=== PATIENT | male | born 1940 | race Caucasian/White ===

== ENCOUNTER 2019-07-19 02:50 | Inpatient (IN) | payer OTHER ==
[~2019-07-19] VITALS: Ht 170.2 cm; Wt 95.2 kg
[2019-07-19] VITALS (7 sets, daily range): BP systolic 119–163; BP diastolic 61–92
[~2019-07-19 02:50] MED LIST: LIPITOR40 MG; LISINOPRIL20 MG PO; LOPRESSOR100 MG; LOW DOSE ASPIRI81 M1; NITROGLYCERIN0.4 MG; PLAVIX 75 MG TA75 MG; PREDNISONE 20 M20 M1 PO; TAZTIA XT PO; TRAMADOL HCL50 MG PO
[2019-07-19] MEDS ORDERED: LASIX 40 MG TAB40 M2 PO (03:29)
[2019-07-19] MEDS ORDERED: ASPIR 8181 MG PO (03:30)
[2019-07-19] MEDS ORDERED: ADVIL200 M3 PO (03:31)
[2019-07-19] MEDS ORDERED: CELEBREX 200 M200 M1 PO (03:32)
[2019-07-19] MEDS ORDERED: CELECOXIB100 MG PO (03:32)
[2019-07-19] MEDS ORDERED: LISINOPRIL20 MG PO (03:33)
[2019-07-19] MEDS ORDERED: KLOR-CON 1010 MEQ PO (03:34)
[2019-07-19] MEDS ORDERED: LOPRESSOR100 M1 PO (03:35)
[2019-07-19] MEDS ORDERED: FLOMAX0.4 MG PO (03:37)
--- NOTE | 2019-07-19 04:28 | NUR ---
ADMITED FROM [facility] AROUND 0320. VSS. PT DENIES CP, SOA, N/V, DIZZINESS. STEADY. RA-CLEAR. ADMISSION MED RECONCIL DONE, PT STATED CAN BRING EXACT LIST IN AM. PATIENT REPRESENTATIVE SAW PT, ORDERS RECIEVED. HEPARIN GTT PER ORDERED PROTOCOL. WILL CONTINUE TO MONITOR AND WITH POC
[2019-07-19 04:56] LABS: HEMATOCRIT 43.6 % (42.0-52.0); HEMOGLOBIN 14.7 gm/dL (14.0-18.0); MCH 31.4 pg (26.0-34.0); MCHC 33.7 g/dL (28.0-37.0); MCV 93.2 fL (80.0-100.0); RBC 4.68 mil/uL (4.50-6.00); RDW 13.5 % (10.5-14.5); WBC 12.1 thou/uL (4.0-11.0)
[2019-07-19 05:09] LABS: APTT 33.4 Seconds (24.5-32.8); PROTIME 10.3 Seconds (9.3-11.4)
[2019-07-19 05:10] LABS: CALCIUM 8.6 mg/dL (8.5-10.1); POTASSIUM 3.7 mmol/L (3.5-5.1)
[2019-07-19 05:15] LABS: ALBUMIN 3.4 g/dL (3.4-5.0); TOTAL BILIRUBIN 0.7 mg/dL (<0.1-1.0); TOTAL PROTEIN 6.3 g/dL (6.4-8.2)
[2019-07-19 13:00] LABS: CHOLESTEROL 161 mg/dL (<200); HDL CHOLESTEROL 31 mg/dL (>40); LDL CHOLESTEROL 111 mg/dL (<100); TC:HDL 5.2 Ratio (Not establshd); TRIGLYCERIDE 98 mg/dL (<150); VLDL 20 mg/dL (<40)
--- NOTE | 2019-07-19 19:45 | NUR ---
PATIENT UP TO THE RESTROOM SEVERAL TIMES AND HEART RATE NOTED TO INCREASE WITH ACTIVITY. MONITOR ST WITH PAC'S AND PVC'S. TROPONIN ELEVATED AND DR YUEN AWARE. PERMITS FOR HEART CATH IN AM SIGNED. NO C/O CHEST PAIN TODAY. HEPARIN INFUSION CONTINUES AND NOW IN [employer] RANGE. REASSURANCE GIVEN.
[2019-07-20] VITALS (15 sets, daily range): BP systolic 95–178; BP diastolic 50–99
--- NOTE | 2019-07-20 03:48 | NUR ---
ASSESSMENT CHARTED. VSS. PT DENIES CP, SOA, N/V, DIZZINESS. HEPARIN GTT PER PROTOCOL LAST APTT THERAPUTIC. NPO. PLAN FOR DIRECTOR LEARNING SERVICES TODAY, PRECATH CHECKLIST. WILL CONTINUE TO MONITOR AND WITH POC.
--- NOTE | 2019-07-20 09:10 | EKG ---
[address] [address] ELECTROCARDIOGRAM REPORT Name: SKYLER YANG Room #: 216-P 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1940 Requested By: Bri Hartman Order Number: [id number] MD: Zeeshan Rogers Measurements Intervals [place] Rate: 97 P: 34 WI: 163 QRS: 38 QRSD: 71 T: -58 QT: 377 QTc: 479 Interpretive Statements Sinus tachycardia Multiform ventricular premature complexes Borderline T abnormalities, diffuse leads Electronically Signed On 07-20-2019 9:10:42 CDT by Zeeshan Rogers [email or web address] ��������������������������������������������� <ELECTRONICALLY SIGNED> ���������������������������������������� By: Zeeshan Rogers MD ��������������������������������������������� 07/20/19909 07 07 MD CHASE Mathew
[2019-07-20 11:27] LABS: TSH 0.82 uIU/mL (0.358-3.740)
--- NOTE | 2019-07-20 12:36 | 2DMMODE ---
[facility] [address] [place] [address] 2 D/M-MODE ECHOCARDIOGRAM Name: SKYLER YANG Room #: 216-P [facility] IN [facility]#: [id number] ������������� Admission: 07/19/19 ������������� Attend Phys: Chrystal Garg MD Discharge: ��� ������������� ��� Date of : 44 Date of Service: 07/20/19 1236 �� Report #: [id number] �������� ��������������������������������������������[id number] THIS REPORT FOR: //name// APPROVED REPORT Study performed: 07/20/2019 11:14:15 EXAM: Comprehensive 2D, Doppler, and color-flow Echocardiogram Patient Location: Bedside Room #: 216 Status: routine BSA: 2.07 HR: 67 bpm BP: 143/72 mmHg Rhythm: NSR Other Information Study Quality: Adequate Technically limited study due to inability to position patient. Risk Factors: Cardiac Risk Factors: HTN, DM Indications Non STEMI CAD 2D Dimensions IVSd: 10.06 (7-11mm) LVOT Diam: 20.00 (18-24mm) LVDd: 47.75 mm PWd: 11.01 (7-11mm) Ascending Ao: 36.67 (22-36mm) LVDs: 35.56 (25-40mm) Aortic Root: 36.69 mm LV Single Plane 4CH: 42.46 % LV Single Plane 2CH: 34.85 % Biplane EF: 40.0 % Volumes Left Atrial Volume (Systole) Single Plane 4CH: 90.86 mL Single Plane 2CH: 90.39 mL LA ESV Index: 51.00 mL/m2 Aortic Valve AoV Peak Daniel.: 1.78 m/s [facility] [address] [place] [address] 2 D/M-MODE ECHOCARDIOGRAM Name: SKYLER YANG Room #: 216-P [facility]#: [id number] ������������� Admission: 07/19/19 ������������� Attend Phys: Chrystal Garg MD Discharge: ��� ������������� ��� Date of : 44 Date of Service: 07/20/19 1236 �� Report #: [id number] �������� ��������������������������������������������[id number] AO Peak Gr.: 12.60 mmHg LVOT Max P.04 mmHg LVOT Mean P.99 mmHg LVOT Max V: 1.05 m/s LVOT Mean V: 0.65 m/s LVOT V1 VTI: 24.46 cm DON Vmax: 1.85 cm2 AI Vmax: 3.61 m/s SV (LVOT): 79.82 mL AI Bucks: 2.11 m/s2 AI PHT: 495.12 ms Mitral Valve E/A Ratio: 0.5 MV Decel. Time: 256.41 ms MV E Max Daniel.: 0.62 m/s MV A Daniel.: 1.18 m/s MV PHT: 74.36 ms IVRT: 72.66 ms TDI E/Lateral E': 15.50 E/Medial E': 20.67 Medial E' Daniel.: 0.03 m/s Lateral E' Daniel.: 0.04 m/s Pulmonary Valve PV Peak Daniel.: 0.76 m/s PV Peak Gr.: 2.34 mmHg Pulmonary Vein P Vein S: 0.33 m/s P Vein A: 0.24 m/s P Vein D: 0.24 m/s P Vein A Dur.: 124.6 msec P Vein S/D Ratio: 1.38 Tricuspid Valve RAP Estimate: 10.00 mmHg Left Ventricle The left ventricle is normal size. There is global hypokinesis of the left ventricle with more prominent lateral hypokinesis There is normal left ventricular wall thickness. Left ventricular systolic function is mild to moderately decreased. LVEF is 40%. Mild diastolic dysfunction is present (impaired relaxation pattern). Right Ventricle The right ventricle is normal size. The right ventricular systolic function is normal. [facility] [address] [place] [address] 2 D/M-MODE ECHOCARDIOGRAM Name: SKYLER YANG Room #: 216-P [facility] IN [facility]#: [id number] ������������� Admission: 07/19/19 ������������� Attend Phys: Chrystal Garg MD Discharge: ��� ������������� ��� Date of : 44 Date of Service: 07/20/19 1236 �� Report #: [id number] �������� ��������������������������������������������[id number] Left atrium is severely dilated. Right atrium is mildly dilated. Aortic Valve The aortic valve is normal in structure. Mild aortic regurgitation. There is no aortic valvular stenosis. Mitral Valve The mitral valve is normal in structure. Mild mitral regurgitation. No evidence of mitral valve stenosis. Tricuspid Valve The tricuspid valve is normal in structure. There is no tricuspid valve regurgitation noted. Pulmonic Valve The pulmonary valve is normal in structure. There is no pulmonic valvular regurgitation. Great Vessels The aortic root is normal in size. The ascending aorta is normal in size. IVC is mildly dilated and collapses >50% with inspiration. Pericardium There is no pericardial effusion. <Conclusion> The left ventricle is normal size. LVEF is 40%. There is global hypokinesis of the left ventricle with more prominent lateral hypokinesis The aortic valve is normal in structure. Mild aortic regurgitation. The mitral valve is normal in structure. Mild mitral regurgitation. The tricuspid valve is normal in structure. The pulmonary valve is normal in structure. There is no pericardial effusion. ��������������������������������������������� <ELECTRONICALLY SIGNED> ���������������������������������������� By: Geoffrey Albright MD ��������������������������������������������� 07/20/19 1236 1236 1236 Geoffrey Albright MD /INF
--- NOTE | 2019-07-20 14:14 | NUR ---
PT STARTED HAVING CHEST PAIN. PT DID NOT HAVE PAIN EARLIER TODAY. PT STATES HIS PAIN IS 8/10. DR. MAHMOOD NOTIFIED. ORDERS GIVEN AND FOLLOWED. VITALS SIGNS OBTAINED. O2 LOW, APPLIED O2. OTHER V/S STABLE. WILL FOLLOW UP WITH EFFECTIVENESS OF INTERVENTIONS.
--- NOTE | 2019-07-20 16:04 | EKG ---
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1940 Requested By: Geoffrey Albright Order Number: [id number] MD: Zeeshan Rogers Measurements Intervals [place] Rate: 100 P: 62 ND: 177 QRS: 46 QRSD: 101 T: 219 QT: 379 QTc: 489 Interpretive Statements Sinus tachycardia Atrial premature complex Repol abnrm suggests ischemia, lateral leads Compared to ECG 07/19/2019 07:20:03 Electronically Signed On 07-20-2019 16:04:13 CDT by Zeeshan Rogers [email or web address] ��������������������������������������������� <ELECTRONICALLY SIGNED> ���������������������������������������� By: Zeeshan Rogers MD ��������������������������������������������� 07/20/19 1604 1417 141 Zeeshan Rogers MD /ALEJANDRINA
--- NOTE | 2019-07-20 16:52 | NUR ---
COMPLETED INTERVENTIONS FOR CHEST PAIN. PT STATED HE HAD NO CHEST PAIN. PT HAS STABLE VITAL SIGNS.
--- NOTE | 2019-07-20 17:02 | NUR ---
AT ONE POINT PT NEEDED 4 L OF O2 TO KEEP O2 SAT STABLE. PT IS NOW AT 2 L OF O2 AND IS STABLE. WILL CONTINUE TO WEAN PT OFF O2 INDICATED.
--- NOTE | 2019-07-20 18:08 | NUR ---
ASSUMED PT CARE AT [facility] 0700. PT A&O X4. ASSESSMENT CHARTED. FALL PRECAUTIONS IN PLACE. VITAL SIGNS ARE STABLE. PT STATES HE HAS ZERO CHEST PAIN. PT STATES HE IS NOT SOB. PT HAD CATH PROCEDURE TODAY. R GROIN HAS BEEN C/D/I. NO HEMATOMA. PT HAD CHEST PAIN EARLIER TODAY- SEE PATIENT NOTES. CHEST PAIN INTERVENTIONS WERE FOLLOWED AND INITIATED. DR. TRUJILLO WAS NOTIFIED. PT IS STABLE AND SITTING COMFORTABLY IN HIS CHAIR. ENCOURAGING PT TO EAT AND DRINK. PT RESUMED A HEART HEALTHY DIET. PT HAD FAMILY AND FRIENDS VISIT HIM. PT, FAMILY, AND FRIENDS WERE EDUCATED ON PT'S STATUS AND POC. PT, FAMILY AND FRIENDS STATED UNDERSTANDING AND DENIED FURTHER QUESTIONS. PT WANTED TO RECIEVE SOME HEARTBURN RELIEF MEDICATIONS BEFORE EATING DINNER. DR. TRUJILLO PAGED. AWAITING DR. TRUJILLO'S CALL BACK TO DETERMINE THE NEXT STEP IN PT'S POC. CONTINUING TO MONITOR PT.
[2019-07-21 03:06] LABS: GLYCOHEMOGLOBIN (HGB A1C) 6.8 % (4.8-5.6)
--- NOTE | 2019-07-21 03:54 | NUR ---
ASSESSMENT CHARTED. VSS. PT DENIES CP, N/V, DIZZINESS, SOA. CARDIO CALLED REGARDING HEPARINN GTT, ORDERS RECIEVED. HEPARIN RESTARTED PER PROTOCOL. 2 L NC. PT AT SMALL BITES OF CRACKERS DUE TO NAUSEA DURING AM SHIFT, TOLERATED. SLEEPING WELL. PLAN FOR AM APPT. WILL CONTINUE TO MONITOR AND WITH POC.
[2019-07-21 04:41] LABS: HEMATOCRIT 42.4 % (42.0-52.0); HEMOGLOBIN 14.4 gm/dL (14.0-18.0); MCH 32.2 pg (26.0-34.0); MCV 94.8 fL (80.0-100.0); RBC 4.47 mil/uL (4.50-6.00); RDW 13.6 % (10.5-14.5); WBC 9.7 thou/uL (4.0-11.0)
[2019-07-21 04:49] VITALS: BP 119/67
[2019-07-21 04:51] LABS: CALCIUM 8.7 mg/dL (8.5-10.1); CREATININE 1.1 mg/dL (0.7-1.3); MAGNESIUM 1.8 mg/dL (1.8-2.4); POTASSIUM 3.6 mmol/L (3.5-5.1)
[2019-07-21 05:05] LABS: TROPONIN-I 2.04 ng/mL (<0.06)
[2019-07-21 08:00] VITALS: BP 134/73
[2019-07-21 12:08] VITALS: BP 140/75
[2019-07-21] MEDS ORDERED: IMDUR 60 MG TAB60 M1 PO (12:37)
[2019-07-21] MEDS ORDERED: ACETAMINOPHEN325 M1 PO (12:37)
[2019-07-21] MEDS ORDERED: NITROGLYCERIN0.4 MG SUBLING (12:37)
[2019-07-21 12:54] VITALS: BP 140/75
--- NOTE | 2019-07-21 13:32 | NUR ---
ASSUMMED PT CARE AT [facility] 0700. PT A&O X4. ASSESSMENT CHARTED. FALL PRECAUTIONS IN PLACE. PT STATED HE DOES NOT HAVE CHEST PAIN. PT STATED HE IS NOT SOB. PT TITRATED OFF O2. PT'S O2 STAT IS STABLE. PT DC OFF HEPARIN DRIP VIA DR. MAHMOOD. PT WALKED AROUND UNIT MULTIPLE TIMES WITH CARDIAC REHAB NURSE. PT STATED HE DID NOT HAVE CHEST PAIN OR SOB AFTER WALKING. PT'S VITAL SIGNS STAYED STABLE AFTER WALKING. PT'S R GROIN POST CATH SITE IS C/D/I. NO HEMATOMA. PT'S FRIENDS AND FAMILY VISITED. PT AND FAMILY WERE EDUCATED ABOUT PT'S STATUS. PT AND FAMILY DENIED FURTHER QUESTIONS AND STATED UNDERSTANDING WITH PT'S POC. PT DISCHARGING HOME WITH . HOSPITAL TRANSPORT TAKING PT OFF UNIT. PT'S IV AND TELE DC. DISCHARGE EDUCATION PROVIDED TO PT AND . PT AND STATED UNDERSTANDING AND DENIED HAVING FURTHER QUESTIONS.
--- NOTE | 2019-07-21 15:09 | NUR ---
PT PERFOMED WALK WITH CV REHAB WELL. POST WALK VSS. PT DENIES CHEST PAIN OR SOA. BECAME NAUSEATED AND RECEIVED ZOFRAN. DENIES NAUSEA AT THIS TIME. PT AWARE OF OPTIONS TO CALL DRs REGARDING NAUSEA AND ALSO IF HE DOESN'T FEEL WELL ENOUGH TO GO HOME THAT THIS NURSE CAN CALL HIS DRs. PT REFUSED THESE OPTIONS. STATING THAT HE FEELS WELL ENOUGH FOR DISCHARGE. HOSPITAL STAFF TO ESCORT PT OUT TIMELY.
--- NOTE | 2019-07-25 16:53 | CATHLAB ---
[facility] [address] [place] [address] INVASIVE PROCEDURE REPORT Name: TREYSKYLER G Room #: 216-P [facility] IN [facility].#: [id number] ������������� Admission: 07/19/19 ������������� Attend Phys: Chrystal Garg MD Discharge: ��� 07/21/19 ������������� ��� Date of : 44 Date of Service: 07/25/19 1653 �� Report #: [id number] �������� ��������������������������������������������[id number] THIS REPORT FOR: //name// APPROVED REPORT Study performed: 07/20/2019 07:55:37 Patient Details Patient Status: In-Patient Room #: The patient is a 78 year-old male Event Personnel Geoffrey Albright Refuse Collector, Jason Rodriguez RN, Li Natarajan RTR, SPEECH COACH Monitor, Sheldon Gaffney Procedures Performed Art Access - R femoral artery* Coronary Angiography Only [id number] CORANG Aortogram Abdominal Peripheral Angio [id number] Initial Mod Sed Same Phys/QHP Gr5y 696083 Hemostasis w/ Mynx 30469 Mod Sed Same Phys/QHP Ea 523099, supervision of conscious sedation Indication Non-STEMI (>12 hrs to = 24 hrs), Chest pain Procedure Narrative The Right Groin^ was infiltrated with 1% Lidocaine subcutaneous anesthesia. A PINNACLE 6FR Sheath #[id number] sheath was inserted into the RFA^. Coronary angiography was performed using coronary diagnostic catheters. The right coronary system was accessed and visualized with a JR4 catheter. The left coronary system was accessed and visualized with a JL6 catheter. An aortogram of the abdominal aorta was performed. Closure device was deployed with a 6 Fr MYNXGRIP 6/7F #[id number]. The patient tolerated the procedure well and there were no complications associated with the procedure. There was no hematoma. Intraoperative Conscious Sedation Sedation start time: 09:29 Case end Time: 10:11 Versed 2 mg Fluoro Time: 8.40 minutes Dose: DAP 60575.00 cGycm2 1808 mGy Contrast Type and Amount: Omnipaque 90 ml [address] [place] [address] INVASIVE PROCEDURE REPORT Name: SKYLER YANG Room #: 216-P [facility]#: [id number] ������������� Admission: 07/19/19 ������������� Attend Phys: Chrystal Garg MD Discharge: ��� 07/21/19 ������������� ��� Date of : 44 Date of Service: 07/25/19 1653 �� Report #: [id number] �������� ��������������������������������������������[id number] Coronary Angiography The patient's coronary anatomy is right dominant. Diagnostic Cath Left Main Left main is a large caliber normal origin with mild irregularities noted. It bifurcates left anterior descending and left circumflex vessels. LAD Moderate caliber type III vessel which has previous stenting. The previous stents in the proximal and the midportion appear to be only mildly restenosed. The vessel itself has moderate diffuse lesion until its middle point in which case has several high-grade lesions present. Distal portion is greater than 90% stenosis noted but the vessel is quite small in diameter Diagonal 1 Small caliber vessel with diffuse high-grade disease noted Diagonal 2 Small-caliber vessel with diffuse high-grade lesions noted Circumflex Moderate caliber vessel of normal origin heavily calcified proximally with lesions of at least 60% throughout its entire course. First marginal branch is subtotally occluded second marginal branch is small in caliber. OM1 Subtotally occluded OM2 Mall caliber vessel which high-grade diffuse disease noted Right Coronary Moderate caliber vessel normal origin proximally occluded 100% R PDA Small caliber vessel filling retrograde from left to right with irregularities noted in its lumen RPLV Small-caliber vessel filling via gguw-jr-pieme collaterals Left Ventriculography Abdominal aortogram was performed to identify the presence of a previous dimension abdominal aortic aneurysm. This showed diffuse obstructive disease in the abdominal aorta and iliac vessels but the proximal aspect of the aorta and the thorax was enlarged. Hemodynamics The aortic pressure is 150/70 mmHg with a mean of 100 mmHg. Conclusion 1. Severe multivessel coronary artery disease 2. 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 Abnormal hemodynamics elevated left ventricular end-diastolic pressure [facility] [address] [place] [address] INVASIVE PROCEDURE REPORT Name: SKYLER YANG Room #: 216-P [facility] IN M.R.#: [id number] ������������� Admission: 07/19/19 ������������� Attend Phys: Chrystal Garg MD Discharge: ��� 07/21/19 ������������� ��� Date of : 44 Date of Service: 07/25/19 1653 �� Report #: [id number] �������� ��������������������������������������������[id number] Recommendations Cardiac Risk Reduction Program Aggressive Medical Therapy ��������������������������������������������� <ELECTRONICALLY SIGNED> ���������������������������������������� By: Geoffrey Albright MD ��������������������������������������������� 07/25/191652 52 52 Geoffrey Albright MD /INF
== END 2019-07-21 15:41 | disposition home or self-care (01) | DRG 282 ==
LOC: 2N 02:50 → ENTRNSPT 07-21 15:28 → EDTRNSPTSTS 07-21 15:30 → 2N 07-21 15:41
PROVIDERS: Internal Medicine; Internal Medicine Geriatric Medicine; Nurse Practitioner Family; ADMIT Internal Medicine
PROC: 4A023N7 Measurement of Cardiac Sampling and Pressure, Left Heart, Percutaneous Approach (ICD-10-PCS; principal; 2019-07-20)
PROC: B41F1ZZ Fluoroscopy of Right Lower Extremity Arteries using Low Osmolar Contrast (ICD-10-PCS; principal; 2019-07-20)
PROC: B2111ZZ Fluoroscopy of Multiple Coronary Arteries using Low Osmolar Contrast (ICD-10-PCS; principal; 2019-07-20)
PROC: B4101ZZ Fluoroscopy of Abdominal Aorta using Low Osmolar Contrast (ICD-10-PCS; principal; 2019-07-20)
DX: I21.4 Non-ST elevation (NSTEMI) myocardial infarction (principal); I25.110 Atherosclerotic heart disease of native coronary artery with unstable angina pectoris; I10 Essential (primary) hypertension; E78.5 Hyperlipidemia, unspecified; I71.4 Abdominal aortic aneurysm, without rupture; N40.0 Benign prostatic hyperplasia without lower urinary tract symptoms; E11.9 Type 2 diabetes mellitus without complications; I35.1 Nonrheumatic aortic (valve) insufficiency; M19.90 Unspecified osteoarthritis, unspecified site; R63.4 Abnormal weight loss; Z68.32 Body mass index [BMI] 32.0-32.9, adult; I25.2 Old myocardial infarction; Z95.5 Presence of coronary angioplasty implant and graft; Z90.49 Acquired absence of other specified parts of digestive tract; Z87.442 Personal history of urinary calculi; Z79.82 Long term (current) use of aspirin; Z79.899 Other long term (current) drug therapy; I71.6 Thoracoabdominal aortic aneurysm, without rupture
CPT/HCPCS: 10081